=== PATIENT | male | born 1990 | race African-American/Black ===

== ENCOUNTER 2019-01-22 21:39 | Emergency (ER) | payer SELFPAY ==
[~2019-01-22] VITALS: Ht 193 cm; Wt 116.0 kg
[2019-01-22 22:10] VITALS: BP 157/53
[2019-01-22] MEDS ORDERED: AZITHROMYCIN 500 MG TABLET PO ONE (23:15)
[2019-01-22] MEDS ORDERED: CEFTRIAXONE SODIUM 250 MG/VIAL IM ONE (23:15)
[2019-01-24 06:18] LABS: HIV SCREEN 4G Non Reactive (Non Reactive)
== END 2019-01-23 00:04 | disposition home or self-care (01) ==
LOC: ER 21:39
DX: A64 Unspecified sexually transmitted disease (principal); A54.9 Gonococcal infection, unspecified
CPT/HCPCS: 86592; 87389; 99283; J0696